=== PATIENT | male | born 1990 | race Caucasian/White ===

== ENCOUNTER 2023-06-26 13:42 | Emergency (ER) | payer OTHER ==
[2023-06-26 14:11] VITALS: BP 123/82; TEMP 98.2
--- NOTE | 2023-06-26 14:40 | ED ---
Alcohol HPI - General Chief Complaint: Alcohol Stated Complaint: ETOH Time Seen by Provider: 06/26/23 13:55 Source: EMS Mode of arrival: EMS Limitations: no limitations - History of Present Illness Initial Comments: 32-year-old male with past medical history of daily alcohol abuse, heroin abuse on methadone emergency department from [place]. Patient reported to [place] today for rehab. States that he drank more than his usual amounts and an attempt to get drunk as he knew that he was not going to be drinking. States he usually drinks a fifth of vodka per day. Cannot tell me how much he drank today but states he was more than is normal. At [facility] the patient was unable to stand up straight. Because of this they transferred him over to the emergency department for sobriety - Related Data Home Medications Medication Instructions Recorded Confirmed Acetaminophen [Tylenol] 650 mg PO Q4H PRN MDD 4 doses 06/27/23 06/27/23 Calcium/Mag/Zinc/D3 1 tab PO TID PRN 06/27/23 06/27/23 Chlorpheniramine Maleate 4 mg PO Q4H PRN 06/27/23 06/27/23 [Chlor-Trimeton] Hyoscyamine Sulfate [Levsin-Sl] 0.125 mg PO QID PRN 06/27/23 06/27/23 Ibuprofen [Motrin] 600 mg PO Q6H PRN 06/27/23 06/27/23 LORazepam [Ativan] 1 - 2 mg PO Q4H PRN 06/27/23 06/27/23 Loperamide HCl [Imodium A-D] 4 mg PO QID PRN 06/27/23 06/27/23 Methadone HCl [Methadone Intensol] 175 mg PO DAILY 06/27/23 06/27/23 Multivitamins, Thera [Multivitamin 1 tab PO DAILY 06/27/23 06/27/23 (formulary)] Mylanta 30 ml PO Q4H PRN 06/27/23 06/27/23 Zofran Injection 4 mg IM Q6HR PRN 06/27/23 06/27/23 ondansetron HCL [Zofran] 8 mg PO Q6H PRN 06/27/23 06/27/23 Allergies Allergy/AdvReac Type Severity Reaction Status Date / Time Sulfa (Sulfonamide Allergy Unknown Verified 06/27/23 10:29 Antibiotics) Childhood Review of Systems ROS Statement: Those systems with pertinent positive or pertinent negative responses have been documented in the HPI. ROS Other: All systems not noted in ROS Statement are negative. Past Medical History Past Medical History: No Reported History History of Any Multi-Drug Resistant Organisms: None Reported Past Surgical History: Orthopedic Surgery Past Psychological History: Anxiety Smoking Status: Current every day smoker Past Alcohol Use History: Abuse Past Drug Use History: Heroin, Marijuana General Exam Limitations: altered mental status General appearance: alert, in no apparent distress, appears intoxicated Head exam: Present: atraumatic, normocephalic, normal inspection Eye exam: Present: normal appearance, PERRL, EOMI. Absent: scleral icterus, conjunctival injection, periorbital swelling ENT exam: Present: normal exam, mucous membranes moist Neck exam: Present: normal inspection. Absent: tenderness, meningismus, lymphadenopathy Respiratory exam: Present: normal lung sounds bilaterally. Absent: respiratory distress, wheezes, rales, rhonchi, stridor Cardiovascular Exam: Present: regular rate, normal rhythm, normal heart sounds. Absent: systolic murmur, diastolic murmur, rubs, gallop, clicks GI/Abdominal exam: Present: soft, normal bowel sounds. Absent: distended, tenderness, guarding, rebound, rigid Extremities exam: Present: normal inspection, full ROM, normal capillary refill. Absent: tenderness, pedal edema, joint swelling, calf tenderness Back exam: Present: normal inspection Neurological exam: Present: alert, oriented X3, CN II-XII intact, normal gait, other (intoxicated. slurred speech) Psychiatric exam: Present: normal affect, normal mood Skin exam: Present: warm, dry, intact, normal color. Absent: rash Course Vital Signs 06/26/23 06/26/23 06/26/23 13:52 13:58 15:31 Temperature 98.2 F Pulse Rate 98 92 77 Respiratory 16 17 20 Rate Blood Pressure 123/82 123/82 123/82 O2 Sat by Pulse 100 98 99 Oximetry Medical Decision Making - Medical Decision Making Was pt. sent in by a medical professional or institution (, PA, ROD GREASER, urgent c are, hospital, or fdc...) When possible be specific @ -[facility] Did you speak to anyone other than the patient for history (EMS, parent, family, police, friend...)? What history was obtained from this source @ -EMS, [facility] Did you review nursing and triage notes (agree or disagree)? Why? @ -I reviewed and agree with nursing and triage notes Were old charts reviewed (outside hosp., previous admission, EMS record, old EKG, old radiological studies, urgent care reports/EKG's, fdc records)? Report findings @ -No old charts were reviewed Differential Diagnosis (chest pain, altered mental status, abdominal pain women, abdominal pain men, vaginal bleeding, weakness, fever, dyspnea, syncope, headache, dizziness, GI bleed, back pain, seizure, CVA, palpatations, mental health, musculoskeletal)? @ -alcohol intoxication, alcohol withdrawal, idva, head injury EKG interpreted by me (3pts min.). @ -not done X-rays interpreted by me (1pt min.). @ -None done CT interpreted by me (1pt min.). @ -None done U/S interpreted by me (1pt. min.). @ -None done What testing was considered but not performed or refused? (CT, X-rays, U/S, labs)? Why? @ -None What meds were considered but not given or refused? Why? @ -None Did you discuss the management of the patient with other professionals (professionals i.e. , PA, ROD GREASER, lab, RT, psych nurse, social science professor, rivet spinner, teacher, retail loan officer, case technician)? Give summary @ -No Was smoking cessation discussed for >3mins.? @ -No Was critical care preformed (if so, how long)? @ -No Were there social determinants of health that impacted care today? How? (Homelessness, low income, unemployed, alcoholism, drug addiction, transportation, low edu. Level, literacy, decrease access to med. care, [facility], rehab)? @ -No Was there de-escalation of care discussed even if they declined (Discuss DNR or withdrawal of care, Hospice)? DNR status @ -No What co-morbidities impacted this encounter? (DM, HTN, Smoking, COPD, CAD, Can cer, CVA, ARF, Chemo, Hep., AIDS, mental health diagnosis, sleep apnea, morbid obesity)? @ -alcohol intoxication Was patient admitted / discharged? Hospital course, mention meds given and route, prescriptions, significant lab abnormalities, going to OR and other pertinent info. @Upon arrival patient was placed in room 2. Thorough history and physical exam was performed. Patient does have a breathalyzer alcohol level of 0.197. He is observed in the emergency department for an hour and a half. He is able to answer all questions appropriately. He is able to get up and ambulate without issue. At this time the patient will be discharged to [facility] for continued sobriety Undiagnosed new problem with uncertain prognosis? @ -No Drug Therapy requiring intensive monitoring for toxicity (Heparin, Nitro, Insulin, Cardizem)? @ -No Were any procedures done? @ -No Diagnosis/symptom? @ -acute alcohol intoxication, hx etoh abuse Acute, or Chronic, or Acute on Chronic? @ -Acute Uncomplicated (without systemic symptoms) or Complicated (systemic symptoms)? @ -complicated Side effects of treatment? @ -No Exacerbation, Progression, or Severe Exacerbation? @ -No Poses a threat to life or bodily function? How? (Chest pain, [place], [place], pneumonia, PE, COPD, DKA, ARF, appy, cholecystitis, CVA, Diverticulitis, Homicidal, Suicidal, threat to staff... and all critical care pts) @ -No Disposition Clinical Impression: Alcoholic intoxication Disposition: HOME SELF-CARE Condition: Stable Instructions (If sedation given, give patient instructions): Alcohol Intoxication (ED) Additional Instructions: Your alcohol level was 0.197 when you came in. You were able to ambulate without difficulty. You will be transferred back to [facility] at this time Is patient prescribed a controlled substance at d/c from ED?: No Referrals: Mir Brantley MD [Primary Care Provider] - 1-2 days Time of Disposition: 14:39
[2023-06-26 15:43] VITALS: PULSE 77; RESP 20
== END 2023-06-26 15:32 | disposition home or self-care (01) ==
LOC: EC 13:42
DX: F10.129 Alcohol abuse with intoxication, unspecified (principal); F41.9 Anxiety disorder, unspecified; F17.200 Nicotine dependence, unspecified, uncomplicated; F12.90 Cannabis use, unspecified, uncomplicated; Z88.2 Allergy status to sulfonamides; Z79.899 Other long term (current) drug therapy
CPT/HCPCS: 82075; 99284

== ENCOUNTER 2023-06-27 10:16 | Inpatient (IN) | payer OTHER ==
[2023-06-27] MEDS ORDERED: METOCLOPRAMIDE 5 MG/ML 2 ML VIAL IVP STA ×2 (10:48→11:17)
--- NOTE | 2023-06-27 10:49 | ED ---
Nausea/Vomiting/Diarrhea HPI - General Source: patient, RN notes reviewed Mode of arrival: ambulatory Limitations: no limitations <Joycelyn Bowen - Last Filed: 06/27/23 10:48> <Zan Rutherford - Last Filed: 06/27/23 13:56> - General Chief complaint: Nausea/Vomiting/Diarrhea Stated complaint: abd pain/vomiting Time Seen by Provider: 06/27/23 10:48 - History of Present Illness Initial comments: Patient is a 32-year-old male presented ER with chief complaint of nausea vomiting. Patient states he fell against the past day. Patient endorses associated chills. (Joycelyn Bowen) Patient is a 32-year-old male presenting from [place] for rehab for alcohol abuse, presenting with nausea vomiting. She states last drink was 2 days ago. He states he's had increased nausea vomiting. No signs of blood in the emesis. Patient does admit to abdominal discomfort. He states that he feels that is radiating up. The patient does admit that he's had mild cough but states this is not unusual for him. He denies any other complaints or any other symptoms at this time. Patient denies any recent fever, chills, shortness of breath, chest pain, back pain, numbness or tingling, headaches or visual changes, or any other complaints. (Zan Rutherford) - Related Data Allergies Allergy/AdvReac Type Severity Reaction Status Date / Time Sulfa (Sulfonamide Allergy Unknown Verified 06/27/23 10:29 Antibiotics) Childhood Review of Systems ROS Other: All systems not noted in ROS Statement are negative. <Joycelyn Bowen - Last Filed: 06/27/23 10:48> ROS Other: All systems not noted in ROS Statement are negative. <Zan Rutherford - Last Filed: 06/27/23 13:56> ROS Statement: Those systems with pertinent positive or pertinent negative responses have been documented in the HPI. Past Medical History Past Medical History: No Reported History History of Any Multi-Drug Resistant Organisms: None Reported Past Surgical History: Orthopedic Surgery Past Psychological History: Anxiety Smoking Status: Current every day smoker Past Alcohol Use History: Abuse Past Drug Use History: Heroin, Marijuana <Joycelyn Bowen - Last Filed: 06/27/23 10:48> General Exam Limitations: no limitations <Joycelyn Bowen - Last Filed: 06/27/23 10:48> <Zan Rutherford - Last Filed: 06/27/23 13:56> - General Exam Comments Initial Comments: Visual Physical Exam Vital signs reviewed General: Well-appearing, nontoxic, no acute distress. Head: Normocephalic, atraumatic Eyes: PERRLA, EOMI ENT: Airway patent Chest: Nonlabored breathing Skin: No visual rash, normal skin tone Neuro: Alert and oriented 3 Musculoskeletal: No gross abnormalities (Joycelyn Bowen) General: The patient is awake and alert, in no distress, and does not appear acutely ill. Eye: extra-ocular movements are intact. There is normal conjunctiva bilaterally. No signs of icterus. Ears, nose, mouth and throat: There are moist mucous membranes and no oral lesions. Neck: The neck is supple Cardiovascular: There is a regular rate and rhythm. No murmur, rub or gallop is appreciated. Respiratory: Lungs are clear to auscultation, respirations are non-labored, breath sounds are equal. Gastrointestinal: Abdomen is soft on palpation. Mild tenderness epigastric. No rebound, guarding. Musculoskeletal: Normal ROM, no tenderness. Neurological: A&O x 3. CN II-XII intact, There are no obvious motor or sensory deficits. Coordination appears grossly intact. Speech is normal. Skin: Skin is warm and dry and no rashes or lesions are noted. Psychiatric: Cooperative, appropriate mood & affect, normal judgment. (Zan Patrick) Course Vital Signs 06/27/23 10:27 Temperature 98.2 F Pulse Rate 86 Respiratory 20 Rate Blood Pressure 121/76 O2 Sat by Pulse 99 Oximetry Medical Decision Making <Joycelyn Bowen - Last Filed: 06/27/23 10:48> - Lab Data Result diagrams: 06/27/23 12:11 06/27/23 12:11 <Zan Rutherford - Last Filed: 06/27/23 13:56> - Medical Decision Making I performed the quick note portion of the exam. Electronically signed by Joycelyn Bowen PA-C (Joycelyn Bowen) History was obtained from patient/Nurse/ Initial assessment and chief complaint: Nausea, vomiting Chronic conditions affecting care: Heroin abuse, alcohol abuse Social determinants affecting care: None Differential diagnosis included, but not limited to: Alcohol withdrawal, gastritis, colitis, gastroenteritis, pancreatitis Patient 32-year-old male significant past medical history for heroin abuse, alcohol abuse, presenting to the emergency room today with a chief complaint of abdominal discomfort, nausea vomiting. Patient does admit last drink was 2 days ago. Currently at [place] for rehab for alcohol. Patient vitals been stable here in emergency room. He was given liter bolus and Ativan, Zofran, Toradol, Pepcid here in the emergency room states he is feeling better. Patient does take methadone. He did receive his dose at 175 mg earlier this morning had [place]. Patient blood work is been reviewed. No elevated white count 10.9. Patient's amylase lipase are elevated. Lipase was 6500. Minimal elevation of AST ALT of 116, 120. Total bilirubin 2.8. Case was discussed with Dr. May who will admit the patient. Does request a CT of the abdomen pelvis which has been placed on his behalf and is currently pending. Patient will be admitted. He is with plan states understanding and is agreement. (Zan Rutherford) - Lab Data Lab Results 06/27/23 06/27/23 06/27/23 Range/Units 10:38 12:11 12:11 WBC 10.9 H (3.8-10.6) k/uL RBC 4.61 (4.30-5.90) m/uL Hgb 15.8 (13.0-17.5) gm/dL Hct 46.4 (39.0-53.0) % MCV 100.5 H (80.0-100.0) fL MCH 34.3 (25.0-35.0) pg MCHC 34.2 (31.0-37.0) g/dL RDW 11.9 (11.5-15.5) % Plt Count 185 (150-450) k/uL MPV 8.2 Neutrophils % 85 % Lymphocytes % 4 % Monocytes % 10 % Eosinophils % 0 % Basophils % 0 % Neutrophils # 9.3 H (1.3-7.7) k/uL Lymphocytes # 0.5 L (1.0-4.8) k/uL Monocytes # 1.1 H (0-1.0) k/uL Eosinophils # 0.0 (0-0.7) k/uL Basophils # 0.0 (0-0.2) k/uL Sodium 135 L (137-145) mmol/L Potassium 3.8 (3.5-5.1) mmol/L Chloride 94 L (98-107) mmol/L Carbon Dioxide 26 (22-30) mmol/L Anion Gap 15 mmol/L BUN 18 (9-20) mg/dL Creatinine 0.62 L (0.66-1.25) mg/dL Est GFR (CKD-EPI)AfAm >90 (>60 ml/min/1.73 sqM) Est GFR (CKD-EPI)NonAf >90 (>60 ml/min/1.73 sqM) Glucose 120 H (74-99) mg/dL Calcium 9.5 (8.4-10.2) mg/dL Total Bilirubin 2.8 H (0.2-1.3) mg/dL AST 116 H (17-59) U/L ALT 120 H (4-49) U/L Alkaline Phosphatase 80 (38-126) U/L Total Protein 7.9 (6.3-8.2) g/dL Albumin 4.9 (3.5-5.0) g/dL Amylase 511 H* (30-110) U/L Lipase 6512 H (23-300) U/L Influenza Type A (PCR) Not Detected (Not Detectd) Influenza Type B (PCR) Not Detected (Not Detectd) RSV (PCR) Not Detected (Not Detectd) SARS-CoV-2 (PCR) Not Detected (Not Detectd) Disposition <Joycelyn Bowen - Last Filed: 06/27/23 10:48> Time of Disposition: 13:55 <Zan Rutherford - Last Filed: 06/27/23 13:56> Clinical Impression: Acute pancreatitis Disposition: ADMITTED IP TO THIS HOSP Condition: Stable Referrals: None,Stated [REFERRING] - 1-2 days
[2023-06-27] MEDS ORDERED: diphenhydrAMINE 50 MG/ML 1 ML VIAL IVP STA (11:18)
[2023-06-27] MEDS ORDERED: LORazepam 2 MG/ML INJ IV STA (11:29)
[2023-06-27] MEDS ORDERED: ONDANSETRON 4 MG/2 ML VIAL IVP STA (11:29)
[2023-06-27 12:33] LABS: Basophils % (A) 0 %; Eosinophils % (A) 0 %; HCT 46.4 % (39.0-53.0); HGB 15.8 gm/dL (13.0-17.5); Lymphocytes # (A) 0.5 k/uL (1.0-4.8); Lymphocytes % (A) 4 %; MCH 34.3 pg (25.0-35.0); MCHC 34.2 g/dL (31.0-37.0); MCV 100.5 fL (80.0-100.0); Mean Platelet Volume 8.2; Monocytes # (A) 1.1 k/uL (0-1.0); Monocytes % (A) 10 %; Neutrophils # (A) 9.3 k/uL (1.3-7.7); Neutrophils % (A) 85 %; Platelet Count 185 k/uL (150-450); RBC 4.61 m/uL (4.30-5.90); RDW 11.9 % (11.5-15.5); WBC 10.9 k/uL (3.8-10.6)
[2023-06-27 12:47] LABS: ALT 120 U/L (4-49); AST 116 U/L (17-59); African American GFR (CKD) >90 (>60 ml/min/1.73 sqM); Albumin 4.9 g/dL (3.5-5.0); Alkaline Phosphatase 80 U/L (38-126); Anion Gap 15 mmol/L; Blood Urea Nitrogen 18 mg/dL (9-20); Calcium 9.5 mg/dL (8.4-10.2); Carbon Dioxide 26 mmol/L (22-30); Chloride 94 mmol/L (98-107); Glucose 120 mg/dL (74-99); Non-African American GFR(CKD) >90 (>60 ml/min/1.73 sqM); Potassium 3.8 mmol/L (3.5-5.1); Sodium 135 mmol/L (137-145); Total Bilirubin 2.8 mg/dL (0.2-1.3); Total Protein 7.9 g/dL (6.3-8.2)
[2023-06-27] MEDS ORDERED: KETOROLAC 15 MG/ML 1 ML VIAL IVP STA (12:58)
[2023-06-27] MEDS ORDERED: FAMOTIDINE 20 MG/2 ML VIAL IV STA (12:59)
[2023-06-27 13:27] LABS: Amylase 511 U/L (30-110)
[2023-06-27 13:28] LABS: Lipase 6512 U/L (23-300)
[2023-06-27] MEDS ORDERED: NALOXONE 0.4 MG/ML 1 ML VIAL IV PRN (13:50)
[2023-06-27] MEDS ORDERED: ONDANSETRON 4 MG/2 ML VIAL IVP PRN (13:52)
[2023-06-27] MEDS ORDERED: ACETAMINOPHEN TAB 325 MG TAB PO PRN ×2 (14:25→15:03)
[2023-06-27] MEDS ORDERED: traMADol 50 MG TAB PO PRN (14:25)
[2023-06-27] MEDS ORDERED: LORazepam 1 MG TAB PO PRN (14:27)
--- NOTE | 2023-06-27 15:06 | P.HPIM ---
History of Present Illness H&P Date: 06/27/23 Chief Complaint: Nausea vomiting abdominal pain * 32-year-old gentleman with past medical history significant for anxiety, polysubstance use, previous history of marijuana use, heroin use presents to the emergency department with complains of nausea, vomiting. Patient was at [facility] admitted for alcohol detox/rehab. Patient states his last drink was 2 days prior to admission. Patient has been complaining of increased nausea and vomiting. Patient denies blood in his vomit. Patient did complain of abdominal discomfort at the time of admission as well. Patient says abdominal pain seems to be radiating up the throat. Patient had cough however he denied fever, chills, chest pain, shortness of breath, back pain and paresthesia or headache * Workup in ER include CBC which showed hemoglobin of 15.8 WBC of 10.9 and hematocrit of 46 MCV 100 platelet count of 185 * Serum chemistry shows sodium 135 potassium 3.8 chloride 94 BU and 18 creatinine 0.62 glucose 120 total bilirubin 2.8, AST 116 LT 120 a mile's of 511 lipase of 6512 * Patient was tested negative for RSV influenza and Covid * In to be admitted to medical for however CT abdomen and pelvis ordered which is pending at this time started on IV fluids in ED REVIEW OF SYSTEMS: Nausea, vomiting, abdominal pain CONSTITUTIONAL: No fever, no malaise, no fatigue. HEENT: No recent visual problems or hearing problems. Denied any sore throat. CARDIOVASCULAR: No chest pain, orthopnea, PND, no palpitations, no syncope. PULMONARY: No shortness of breath, no cough, no hemoptysis. GASTROINTESTINAL: Nausea, vomiting, abdominal pain NEUROLOGICAL: No headaches, no weakness, no numbness. HEMATOLOGICAL: Denies any bleeding or petechiae. GENITOURINARY: Denies any burning micturition, frequency, or urgency. MUSCULOSKELETAL/RHEUMATOLOGICAL: Denies any joint pain, swelling, or any muscle pain. ENDOCRINE: Denies any polyuria or polydipsia. The rest of the 14-point review of systems is negative. PHYSICAL EXAMINATION: GENERAL: The patient is alert and oriented x3, dry mucous membrane HEENT: Pupils are round and equally reacting to light. EOMI. CARDIOVASCULAR: S1 and S2 present. No murmurs, rubs, or gallops. PULMONARY: Chest is clear to auscultation, no wheezing or crackles. ABDOMEN: Soft, epigastric tenderness, nondistended, normoactive bowel sounds. MUSCULOSKELETAL: No joint swelling or deformity. EXTREMITIES: No cyanosis, clubbing, or pedal edema. NEUROLOGICAL: Gross neurological examination did not reveal any focal deficits. SKIN: No rashes. Past Medical History Past Medical History: No Reported History History of Any Multi-Drug Resistant Organisms: None Reported Past Surgical History: Orthopedic Surgery Past Psychological History: Anxiety Smoking Status: Current every day smoker Past Alcohol Use History: Abuse Past Drug Use History: Heroin, Marijuana Medications and Allergies Home Medications Medication Instructions Recorded Confirmed Type Acetaminophen [Tylenol] 650 mg PO Q4H PRN MDD 4 doses 06/27/23 06/27/23 History Calcium/Mag/Zinc/D3 1 tab PO TID PRN 06/27/23 06/27/23 History Chlorpheniramine Maleate 4 mg PO Q4H PRN 06/27/23 06/27/23 History [Chlor-Trimeton] Hyoscyamine Sulfate [Levsin-Sl] 0.125 mg PO QID PRN 06/27/23 06/27/23 History Ibuprofen [Motrin] 600 mg PO Q6H PRN 06/27/23 06/27/23 History LORazepam [Ativan] 1 - 2 mg PO Q4H PRN 06/27/23 06/27/23 History Loperamide HCl [Imodium A-D] 4 mg PO QID PRN 06/27/23 06/27/23 History Methadone HCl [Methadone Intensol] 175 mg PO DAILY 06/27/23 06/27/23 History Multivitamins, Thera [Multivitamin 1 tab PO DAILY 06/27/23 06/27/23 History (formulary)] Mylanta 30 ml PO Q4H PRN 06/27/23 06/27/23 History Zofran Injection 4 mg IM Q6HR PRN 06/27/23 06/27/23 History ondansetron HCL [Zofran] 8 mg PO Q6H PRN 06/27/23 06/27/23 History Allergies Allergy/AdvReac Type Severity Reaction Status Date / Time Sulfa (Sulfonamide Allergy Unknown Verified 06/27/23 10:29 Antibiotics) Childhood Physical Exam Vitals: Vital Signs Temp Pulse Resp BP Pulse Ox 06/27/23 10:27 98.2 F 86 20 121/76 99 Intake and Output 06/26/23 06/27/23 06/27/23 22:59 06:59 14:59 Other: Weight 72.575 kg Results CBC & Chem 7: 06/27/23 12:11 06/27/23 12:11 Labs: Abnormal Lab Results - Last 24 Hours (Table) 06/27/23 06/27/23 Range/Units 12:11 12:11 WBC 10.9 H (3.8-10.6) k/uL MCV 100.5 H (80.0-100.0) fL Neutrophils # 9.3 H (1.3-7.7) k/uL Lymphocytes # 0.5 L (1.0-4.8) k/uL Monocytes # 1.1 H (0-1.0) k/uL Sodium 135 L (137-145) mmol/L Chloride 94 L (98-107) mmol/L Creatinine 0.62 L (0.66-1.25) mg/dL Glucose 120 H (74-99) mg/dL Total Bilirubin 2.8 H (0.2-1.3) mg/dL AST 116 H (17-59) U/L ALT 120 H (4-49) U/L Amylase 511 H* (30-110) U/L Lipase 6512 H (23-300) U/L Assessment and Plan Assessment: Assessment and plan * Acute alcohol-induced pancreatitis * Alcohol use disorder with impending withdrawal * On methadone as outpatient * Leukocytosis likely reactive * In regards to alcohol-induced pancreatitis, continue IV fluid, CT abdomen pelvis ordered, continue patient on clear liquid diet, Zofran as needed for nausea * In regards to alcohol use disorder continue on withdrawal protocol Ativan as needed Librium ordered as well * In regards to leukocytosis likely reactive, follow-up on CBC post hydration * Admission reconciliation reviewed, pharmacy confirmed methadone dosing, patient requesting his methadone for today/ordered,monitor for oversedation * CODE STATUS full code Time with Patient: Greater than 30
[2023-06-27] MEDS: SODIUM CHLORIDE 0.9% 1,000 ML IV SCH (16:38)
[2023-06-27] MEDS: FOLIC ACID 1 MG TAB PO SCH (16:39)
--- NOTE | 2023-06-27 17:40 | CT ---
EXAMINATION TYPE: CT abdomen pelvis w con DATE OF EXAM: 06/27/2023 COMPARISON: None INDICATION: nausea and vomiting DLP: 662.5 mGycm, Automated exposure control for dose reduction was used. CONTRAST: 100ml mL of Isovue 300. Study performed without Oral Contrast TECHNIQUE: Axial images were obtained from above the diaphragm to the pubic rami in the axial plane a t 5 mm thick sections. Reconstructed images are reviewed on the computer in the coronal plane. FINDINGS: Limited CT sections are obtained the lung bases. The lung bases are clear. CT ABDOMEN: Fluid is within the abdomen and pelvis. Retroperitoneal fluid may be present adjacent to the pancreas and left adrenal gland. Liver: There is diffuse diminished density to the liver compatible with moderate fatty infiltration o f liver. Spleen: Normal Pancreas: Pancreas density appears normal. There is fluid adjacent to the pancreas. Consider pancreat itis within the differential. Adrenal glands: The adrenal glands are normal. Gallbladder: Normal Kidneys: No masses are evident. No hydronephrosis is present. No cysts are present. No renal stone s are evident. Aorta: Normal Inferior vena cava: Normal. CT PELVIS: Loops of bowel within the abdomen and pelvis are normal. Study is without oral contrast limiting bowel evaluation. Appendix: Not identified. Correlate with patient's surgical history. Urinary bladder: Normal. Genitourinary structures: Prostate is normal Osseous structures: No suspicious lytic or sclerotic lesions. IMPRESSION: 1. Diffuse free fluid within the abdomen and pelvis and some retroperitoneal fluid. Correlate for ac matt pancreatitis among other etiologies. 2. Moderate fatty infiltration of the liver.
[2023-06-27] MEDS: HYDROmorphone 1 MG/ML 1 ML SYRINGE IVP PRN (18:08)
[2023-06-27] MEDS: chlordiazePOXIDE 25 MG CAP PO PRN (20:40)
[2023-06-27] MEDS ORDERED: TAMSULOSIN 0.4 MG CAP.ER.24H PO STA (22:19)
[2023-06-28] MEDS: HYDROmorphone 1 MG/ML 1 ML SYRINGE IVP PRN ×5 (00:11→21:44)
[2023-06-28] MEDS: chlordiazePOXIDE 25 MG CAP PO PRN ×5 (01:31→21:59)
[2023-06-28] MEDS: SODIUM CHLORIDE 0.9% 1,000 ML IV SCH ×5 (06:18→23:50)
[2023-06-28] MEDS ORDERED: TAMSULOSIN 0.4 MG CAP.ER.24H PO SCH (08:30)
[2023-06-28] MEDS: THIAMINE 100 MG TAB PO SCH (09:07)
[2023-06-28] MEDS: FOLIC ACID 1 MG TAB PO SCH (09:07)
[2023-06-28] MEDS: ENOXAPARIN 40 MG/0.4 ML SYRINGE SQ SCH (09:07)
[2023-06-28] MEDS: TAMSULOSIN 0.4 MG CAP.ER.24H PO SCH (09:07)
[2023-06-28] MEDS: METHADONE 10 MG TAB PO SCH (09:31)
[2023-06-28] MEDS: METHADONE 5 MG TAB PO SCH (09:32)
[2023-06-28 09:34] LABS: Basophils # (A) 0.03 X 10*3/uL (0.00-0.10); Basophils % (A) 0.3 %; Eosinophils # (A) 0 X 10*3/uL (0.04-0.35); Eosinophils % (A) 0 %; HCT 46.3 % (39.6-50.0); HGB 15.9 g/dL (13.0-17.0); Lymphocytes # (A) 0.46 X 10*3/uL (0.90-5.00); Lymphocytes % (A) 4.2 %; MCH 34.3 pg (27.0-32.0); MCHC 34.3 g/dL (32.0-37.0); MCV 99.8 FL (80.0-97.0); Mean Platelet Volume 10.7 FL (9.5-12.2); Monocytes # (A) 1.14 X 10*3/uL (0.20-1.00); Monocytes % (A) 10.4 %; NRBC Per 100 WBC 0 X 10*3/uL (0.00-0.01); Neutrophils # (A) 9.26 X 10*3/uL (1.80-7.70); Neutrophils % (A) 84.7 %; Platelet Count 144 X 10*3/uL (140-440); RBC 4.64 X 10*6/uL (4.40-5.60); RDW 12.1 % (11.5-14.5); WBC 10.93 X 10*3/uL (4.50-10.00)
[2023-06-28 09:52] LABS: ALT 79 U/L (10-49); AST 76 U/L (14-35); Alkaline Phosphatase 68 U/L (41-126); BUN/Creat Ratio 29.33 Ratio (12.00-20.00); Blood Urea Nitrogen 17.6 mg/dL (9.0-27.0); Calcium 8.8 mg/dL (8.7-10.3); Carbon Dioxide 23.6 mmol/L (21.6-31.8); Chloride 99 mmol/L (96-109); Glucose 73 mg/dL (70-110); Potassium 3.7 mmol/L (3.5-5.5); Sodium 135 mmol/L (135-145); Total Bilirubin 1.8 mg/dL (0.3-1.2)
[2023-06-28 10:06] LABS: Lipase 1049 U/L (14-60)
--- NOTE | 2023-06-28 11:44 | P.GSCN ---
History of Present Illness Consult date: 06/28/23 History of present illness: 32-year-old male admitted to the hospital with nausea and vomiting. The patient has a history of substance abuse. He has been in the [facility]. Apparently he was found to have an elevated lipase and amylase consistent with pancreatitis. He was admitted for treatment of that plus probable withdrawal from substance abuse. He was having difficulty urinating in the emergency room and attempted a Rob catheter failed. We are asked to see the patient. In the interim he has voided without problems. Historically he denies problems with urination. There is been no history of infections hematuria dysuria or incontinence. He has never had a catheter. His no other urologic history. Review of Systems All systems: negative - Constitutional Denies fever, Denies weight loss - EENT Eyes: denies blurred vision Ears, nose, mouth and throat: Denies dysphagia - Cardiovascular Denies chest pain, Denies shortness of breath - Respiratory Denies cough, Denies 7 - Gastrointestinal Reports as per HPI - Genitourinary Denies dysuria, Denies hematuria - Integumentary Denies rash, Denies unusual bruising - Neurological Denies headaches, Denies syncope - Hematologic/Lymphatic Denies easy bleeding, Denies easy bruising Past Medical History Past Medical History: No Reported History History of Any Multi-Drug Resistant Organisms: None Reported Past Surgical History: Orthopedic Surgery Past Psychological History: Anxiety Smoking Status: Current every day smoker Past Alcohol Use History: Abuse, Daily Past Drug Use History: Heroin, Marijuana Medications and Allergies Home Medications Medication Instructions Recorded Confirmed Type Acetaminophen [Tylenol] 650 mg PO Q4H PRN MDD 4 doses 06/27/23 06/27/23 History Calcium/Mag/Zinc/D3 1 tab PO TID PRN 06/27/23 06/27/23 History Chlorpheniramine Maleate 4 mg PO Q4H PRN 06/27/23 06/27/23 History [Chlor-Trimeton] Hyoscyamine Sulfate [Levsin-Sl] 0.125 mg PO QID PRN 06/27/23 06/27/23 History Ibuprofen [Motrin] 600 mg PO Q6H PRN 06/27/23 06/27/23 History LORazepam [Ativan] 1 - 2 mg PO Q4H PRN 06/27/23 06/27/23 History Loperamide HCl [Imodium A-D] 4 mg PO QID PRN 06/27/23 06/27/23 History Methadone HCl [Methadone Intensol] 175 mg PO DAILY 06/27/23 06/27/23 History Multivitamins, Thera [Multivitamin 1 tab PO DAILY 06/27/23 06/27/23 History (formulary)] Mylanta 30 ml PO Q4H PRN 06/27/23 06/27/23 History Zofran Injection 4 mg IM Q6HR PRN 06/27/23 06/27/23 History ondansetron HCL [Zofran] 8 mg PO Q6H PRN 06/27/23 06/27/23 History Allergies Allergy/AdvReac Type Severity Reaction Status Date / Time Sulfa (Sulfonamide Allergy Unknown Verified 06/27/23 10:29 Antibiotics) Childhood Surgical - Exam Vital Signs Temp Pulse Resp BP Pulse Ox 98.2 F 86 20 121/76 99 06/27/23 10:27 06/27/23 10:27 06/27/23 10:27 06/27/23 10:27 06/27/23 10:27 - General The patient is tremulous. well developed, well nourished, no distress - Eyes normal ocular movement, no icteric - ENT no hearing loss, no congestion - Neck no masses, trachea midline - Respiratory normal respiratory effort, clear to auscultation - Abdomen Abdomen: soft, non tender, no guarding, no rigid, no rebound - Genitourinary normal penis with no external lesions, testicles present, testicles non-tender, other - Integumentary no rash, no abnormal pigmentation - Neurologic no disoriented, no combative - Psychiatric oriented to time, oriented to person, oriented to place, speech is normal, memory intact Results - Labs 06/28/23 04:56 06/28/23 04:56 Abnormal Lab Results - Last 24 Hours (Table) 06/27/23 06/27/23 06/28/23 Range/Units 12:11 12:11 04:56 WBC 10.9 H 10.93 H (3.8-10.6) k/uL MCV 100.5 H 99.8 H (80.0-100.0) fL MCH 34.3 H (27.0-32.0) pg Neutrophils # 9.3 H 9.26 H (1.3-7.7) k/uL Lymphocytes # 0.5 L 0.46 L (1.0-4.8) k/uL Monocytes # 1.1 H 1.14 H (0-1.0) k/uL Eosinophils # 0 L (0.04-0.35) X 10*3/uL Sodium 135 L (137-145) mmol/L Chloride 94 L (98-107) mmol/L Anion Gap (4.00-12.00) mmol/L Creatinine 0.62 L (0.66-1.25) mg/dL BUN/Creatinine Ratio (12.00-20.00) Ratio Glucose 120 H (74-99) mg/dL Total Bilirubin 2.8 H (0.2-1.3) mg/dL AST 116 H (17-59) U/L ALT 120 H (4-49) U/L Total Protein (6.2-8.2) g/dL Amylase 511 H* (30-110) U/L Lipase 6512 H (23-300) U/L 06/28/23 Range/Units 04:56 WBC (3.8-10.6) k/uL MCV (80.0-100.0) fL MCH (27.0-32.0) pg Neutrophils # (1.3-7.7) k/uL Lymphocytes # (1.0-4.8) k/uL Monocytes # (0-1.0) k/uL Eosinophils # (0.04-0.35) X 10*3/uL Sodium (137-145) mmol/L Chloride (98-107) mmol/L Anion Gap 12.40 H (4.00-12.00) mmol/L Creatinine (0.66-1.25) mg/dL BUN/Creatinine Ratio 29.33 H (12.00-20.00) Ratio Glucose (74-99) mg/dL Total Bilirubin 1.8 H (0.2-1.3) mg/dL AST 76 H (17-59) U/L ALT 79 H (4-49) U/L Total Protein 6.0 L (6.2-8.2) g/dL Amylase (30-110) U/L Lipase 1049 H (23-300) U/L Diabetes panel 06/27/23 06/28/23 Range/Units 12:11 04:56 Sodium 135 L 135 (137-145) mmol/L Potassium 3.8 3.7 (3.5-5.1) mmol/L Chloride 94 L 99 (98-107) mmol/L Carbon Dioxide 26 23.6 (22-30) mmol/L BUN 18 17.6 (9-20) mg/dL Creatinine 0.62 L 0.6 (0.66-1.25) mg/dL Glucose 120 H 73 (74-99) mg/dL Calcium 9.5 8.8 (8.4-10.2) mg/dL AST 116 H 76 H (17-59) U/L ALT 120 H 79 H (4-49) U/L Alkaline Phosphatase 80 68 (38-126) U/L Total Protein 7.9 6.0 L (6.3-8.2) g/dL Albumin 4.9 4.0 (3.5-5.0) g/dL Calcium panel 06/27/23 06/28/23 Range/Units 12:11 04:56 Calcium 9.5 8.8 (8.4-10.2) mg/dL Albumin 4.9 4.0 (3.5-5.0) g/dL Pituitary panel 06/27/23 06/28/23 Range/Units 12:11 04:56 Sodium 135 L 135 (137-145) mmol/L Potassium 3.8 3.7 (3.5-5.1) mmol/L Chloride 94 L 99 (98-107) mmol/L Carbon Dioxide 26 23.6 (22-30) mmol/L BUN 18 17.6 (9-20) mg/dL Creatinine 0.62 L 0.6 (0.66-1.25) mg/dL Glucose 120 H 73 (74-99) mg/dL Calcium 9.5 8.8 (8.4-10.2) mg/dL Adrenal panel 06/27/23 06/28/23 Range/Units 12:11 04:56 Sodium 135 L 135 (137-145) mmol/L Potassium 3.8 3.7 (3.5-5.1) mmol/L Chloride 94 L 99 (98-107) mmol/L Carbon Dioxide 26 23.6 (22-30) mmol/L BUN 18 17.6 (9-20) mg/dL Creatinine 0.62 L 0.6 (0.66-1.25) mg/dL Glucose 120 H 73 (74-99) mg/dL Calcium 9.5 8.8 (8.4-10.2) mg/dL Total Bilirubin 2.8 H 1.8 H (0.2-1.3) mg/dL AST 116 H 76 H (17-59) U/L ALT 120 H 79 H (4-49) U/L Alkaline Phosphatase 80 68 (38-126) U/L Total Protein 7.9 6.0 L (6.3-8.2) g/dL Albumin 4.9 4.0 (3.5-5.0) g/dL - Imaging CT scan - abdomen: report reviewed, image reviewed CT scan - pelvis: report reviewed, image reviewed Assessment and Plan Assessment: Impression: Acute pancreatitis. Substance abuse withdrawal. Difficulty of catheterization probably secondary to discomfort Recommendations: Patient has urinated. My impression that reason the scene staff had difficulty with catheterization was due to patient discomfort. Status history examination no further urologic care is indicated. If Further urologic assistance is needed please feel free to contact us.
--- NOTE | 2023-06-28 13:11 | P.PN ---
Subjective Progress Note Date: 06/28/23 * 32-year-old gentleman with past medical history significant for anxiety, polysubstance use, previous history of marijuana use, heroin use presents to the emergency department with complains of nausea, vomiting. Patient was at [place] admitted for alcohol detox/rehab. Patient states his last drink was 2 days prior to admission. Patient has been complaining of increased nausea and vomiting. Patient denies blood in his vomit. Patient did complain of abdominal discomfort at the time of admission as well. Patient says abdominal pain seems to be radiating up the throat. Patient had cough however he denied fever, chills, chest pain, shortness of breath, back pain and paresthesia or headache * Workup in ER include CBC which showed hemoglobin of 15.8 WBC of 10.9 and hematocrit of 46 MCV 100 platelet count of 185 * Serum chemistry shows sodium 135 potassium 3.8 chloride 94 BU and 18 creatinin e 0.62 glucose 120 total bilirubin 2.8, AST 116 LT 120 a mile's of 511 lipase of 6512 * Patient was tested negative for RSV influenza and Covid * In to be admitted to medical for however CT abdomen and pelvis ordered which is pending at this time started on IV fluids in ED * 2022 : Patient seen and evaluated bedside, patient alert and oriented 3, CT abdomen pelvis reviewed. Diffuse free fluid within the abdomen pelvis some bilateral paratonia fluid, Ammon to the pancreas consistent with acute pancreatitis. Follow-up blood work shows total bilirubin improving 1.8 AST and ALT improving, lipase improving. Continue clear liquid diet REVIEW OF SYSTEMS: Nausea, vomiting, abdominal pain CONSTITUTIONAL: No fever, no malaise, no fatigue. HEENT: No recent visual problems or hearing problems. Denied any sore throat. CARDIOVASCULAR: No chest pain, orthopnea, PND, no palpitations, no syncope. PULMONARY: No shortness of breath, no cough, no hemoptysis. GASTROINTESTINAL: Nausea, vomiting, abdominal pain NEUROLOGICAL: No headaches, no weakness, no numbness. HEMATOLOGICAL: Denies any bleeding or petechiae. GENITOURINARY: Denies any burning micturition, frequency, or urgency. MUSCULOSKELETAL/RHEUMATOLOGICAL: Denies any joint pain, swelling, or any muscle pain. ENDOCRINE: Denies any polyuria or polydipsia. The rest of the 14-point review of systems is negative. PHYSICAL EXAMINATION: GENERAL: The patient is alert and oriented x3, appearing better HEENT: Pupils are round and equally reacting to light. EOMI. CARDIOVASCULAR: S1 and S2 present. No murmurs, rubs, or gallops. PULMONARY: Chest is clear to auscultation, no wheezing or crackles. ABDOMEN: Soft, epigastric tenderness, nondistended, normoactive bowel sounds. MUSCULOSKELETAL: No joint swelling or deformity. EXTREMITIES: No cyanosis, clubbing, or pedal edema. NEUROLOGICAL: Gross neurological examination did not reveal any focal deficits. SKIN: No rashes. Objective - Vital Signs Vital signs: Vital Signs Temp 98.5 F 06/28/23 07:30 Pulse 101 H 06/28/23 07:30 Resp 17 06/28/23 07:30 BP 112/65 06/28/23 07:30 Pulse Ox 100 06/28/23 07:30 FiO2 Intake & Output 06/27/23 06/28/23 06/28/23 18:59 06:59 18:59 Output Total 500 Balance -500 Weight 72.575 kg 72.575 kg Output: Urine 500 Other: Voiding Method Urinal - Labs CBC & Chem 7: 06/28/23 04:56 06/28/23 04:56 Labs: Abnormal Lab Results - Last 24 Hours (Table) 06/27/23 06/28/23 06/28/23 Range/Units 12:11 04:56 04:56 WBC 10.93 H (4.50-10.00) X 10*3/uL MCV 99.8 H (80.0-97.0) FL MCH 34.3 H (27.0-32.0) pg Neutrophils # 9.26 H (1.80-7.70) X 10*3/uL Lymphocytes # 0.46 L (0.90-5.00) X 10*3/uL Monocytes # 1.14 H (0.20-1.00) X 10*3/uL Eosinophils # 0 L (0.04-0.35) X 10*3/uL Sodium 135 L (137-145) mmol/L Chloride 94 L (98-107) mmol/L Anion Gap 12.40 H (4.00-12.00) mmol/L Creatinine 0.62 L (0.66-1.25) mg/dL BUN/Creatinine Ratio 29.33 H (12.00-20.00) Ratio Glucose 120 H (74-99) mg/dL Total Bilirubin 2.8 H 1.8 H (0.2-1.3) mg/dL AST 116 H 76 H (17-59) U/L ALT 120 H 79 H (4-49) U/L Total Protein 6.0 L (6.2-8.2) g/dL Amylase 511 H* (30-110) U/L Lipase 6512 H 1049 H (23-300) U/L Assessment and Plan Assessment: Assessment and plan * Acute alcohol-induced pancreatitis * Alcohol use disorder with impending withdrawal * Transaminitis secondary to alcohol use * On methadone as outpatient polysubstance use disorder * Leukocytosis likely reactive * In regards to alcohol-induced pancreatitis, continue IV fluid, CT abdomen pelvis completed, continue clear liquid diet, continue Zofran * In regards to alcohol use disorder continue on withdrawal protocol Ativan as needed Librium ordered as well * In regards to leukocytosis likely reactive, follow-up on CBC post hydration * Admission reconciliation reviewed, pharmacy confirmed methadone dosing, continue methadone while inpatient, monitor for oversedation * CODE STATUS full code
[2023-06-28 15:25] LABS: Bacteria,Urine Rare /hpf; Mucus,Urine Few /hpf; RBC,Urine 2 /hpf (0-5); Squamous Epithelial Cell,Urine <1 /hpf (0-4); WBC,Urine 17 /hpf (0-5)
[2023-06-28 15:26] LABS: Appearance,Urine Clear (Clear); Color,Urine Light Orange; PH, Urine 6.5 (5.0-8.0); Specific Gravity,Urine >1.030 (1.001-1.035)
[2023-06-28 15:27] LABS: Bilirubin,Urine 1+ (Negative); Blood,Urine Negative (Negative); Glucose,Urine (UA) Trace (Negative); Ketones,Urine 2+ (Negative); Leukocyte Esterase,Urine Moderate (Negative); Nitrite,Urine Negative (Negative); Protein,Urine 1+ (Negative)
--- NOTE | 2023-06-28 17:38 | XR ---
EXAMINATION TYPE: XR KUB portable DATE OF EXAM: 06/28/2023 COMPARISON: None INDICATION: Abdominal pain TECHNIQUE: Single view abdomen supine view FINDINGS: There is a normal bowel gas pattern. Psoas margins are normal. No organomegaly is present. IMPRESSION: 1. Unremarkable Abdomen
[2023-06-29] MEDS: HYDROmorphone 1 MG/ML 1 ML SYRINGE IVP PRN ×4 (01:44→18:28)
[2023-06-29] MEDS: chlordiazePOXIDE 25 MG CAP PO PRN ×2 (03:29→08:25)
[2023-06-29] MEDS: SODIUM CHLORIDE 0.9% 1,000 ML IV SCH ×4 (06:39→19:49)
[2023-06-29] MEDS: TAMSULOSIN 0.4 MG CAP.ER.24H PO SCH (08:25)
[2023-06-29] MEDS: THIAMINE 100 MG TAB PO SCH (08:25)
[2023-06-29] MEDS: FOLIC ACID 1 MG TAB PO SCH (08:26)
[2023-06-29 09:29] LABS: HCT 43.3 % (39.0-53.0); HGB 14.4 gm/dL (13.0-17.5); MCH 34.5 pg (25.0-35.0); MCHC 33.3 g/dL (31.0-37.0); MCV 103.7 fL (80.0-100.0); Macrocytosis Slight; Mean Platelet Volume 8.5; RBC 4.17 m/uL (4.30-5.90); RDW 11.9 % (11.5-15.5); WBC 10.1 k/uL (3.8-10.6)
[2023-06-29] MEDS: METHADONE 5 MG TAB PO SCH (10:26)
[2023-06-29] MEDS: METHADONE 10 MG TAB PO SCH (10:26)
[2023-06-29] MEDS: ENOXAPARIN 40 MG/0.4 ML SYRINGE SQ SCH (10:28)
[2023-06-29] MEDS ORDERED: PHENobarbital SODIUM 130 MG/ML 1 ML VIAL IV ONE (11:34)
--- NOTE | 2023-06-29 11:37 | P.PN ---
Subjective Progress Note Date: 06/29/23 * 32-year-old gentleman with past medical history significant for anxiety, polysubstance use, previous history of marijuana use, heroin use presents to the emergency department with complains of nausea, vomiting. Patient was at [place] admitted for alcohol detox/rehab. Patient states his last drink was 2 days prior to admission. Patient has been complaining of increased nausea and vomiting. Patient denies blood in his vomit. Patient did complain of abdominal discomfort at the time of admission as well. Patient says abdominal pain seems to be radiating up the throat. Patient had cough however he denied fever, chills, chest pain, shortness of breath, back pain and paresthesia or headache * Workup in ER include CBC which showed hemoglobin of 15.8 WBC of 10.9 and hematocrit of 46 MCV 100 platelet count of 185 * Serum chemistry shows sodium 135 potassium 3.8 chloride 94 BU and 18 creatinin e 0.62 glucose 120 total bilirubin 2.8, AST 116 LT 120 a mile's of 511 lipase of 6512 * Patient was tested negative for RSV influenza and Covid * In to be admitted to medical for however CT abdomen and pelvis ordered which is pending at this time started on IV fluids in ED * 2022 : Patient seen and evaluated bedside, patient alert and oriented 3, CT abdomen pelvis reviewed. Diffuse free fluid within the abdomen pelvis some bilateral paratonia fluid, Ammon to the pancreas consistent with acute pancreatitis. Follow-up blood work shows total bilirubin improving 1.8 AST and ALT improving, lipase improving. Continue clear liquid diet * 06/29/2023: Patient seen and evaluated bedside, patient does complain of anxiety, patient says he is withdrawing from alcohol, he will be given 1 dose of phenobarbital, we'll follow-up on liver profile REVIEW OF SYSTEMS: Nausea, vomiting, abdominal pain resolved, nervous and anxious CONSTITUTIONAL: No fever, no malaise, no fatigue. HEENT: No recent visual problems or hearing problems. Denied any sore throat. CARDIOVASCULAR: No chest pain, orthopnea, PND, no palpitations, no syncope. PULMONARY: No shortness of breath, no cough, no hemoptysis. GASTROINTESTINAL: Nausea, vomiting, abdominal pain NEUROLOGICAL: No headaches, no weakness, no numbness. HEMATOLOGICAL: Denies any bleeding or petechiae. GENITOURINARY: Denies any burning micturition, frequency, or urgency. MUSCULOSKELETAL/RHEUMATOLOGICAL: Denies any joint pain, swelling, or any muscle pain. ENDOCRINE: Denies any polyuria or polydipsia. The rest of the 14-point review of systems is negative. PHYSICAL EXAMINATION: GENERAL: The patient is alert and oriented x3, appearing better HEENT: Pupils are round and equally reacting to light. EOMI. CARDIOVASCULAR: S1 and S2 present. No murmurs, rubs, or gallops. PULMONARY: Chest is clear to auscultation, no wheezing or crackles. ABDOMEN: Soft, epigastric tenderness, nondistended, normoactive bowel sounds. MUSCULOSKELETAL: No joint swelling or deformity. EXTREMITIES: No cyanosis, clubbing, or pedal edema. NEUROLOGICAL: Gross neurological examination did not reveal any focal deficits. SKIN: No rashes. Objective - Vital Signs Vital signs: Vital Signs Temp 98.7 F 06/29/23 07:05 Pulse 110 H 06/29/23 07:05 Resp 16 06/29/23 07:05 BP 113/71 06/29/23 07:05 Pulse Ox 98 06/29/23 07:05 FiO2 Intake & Output 06/28/23 06/29/23 06/29/23 18:59 06:59 18:59 Other: Voiding Method Urinal Urinal # Voids 0 1 - Labs CBC & Chem 7: 06/29/23 08:30 06/28/23 04:56 Labs: Abnormal Lab Results - Last 24 Hours (Table) 06/28/23 06/29/23 Range/Units 12:59 08:30 RBC 4.17 L (4.30-5.90) m/uL MCV 103.7 H (80.0-100.0) fL Urine Protein 1+ H (Negative) Urine WBC 17 H (0-5) /hpf Urine Bacteria Rare H (None) /hpf Urine Mucus Few H (None) /hpf Assessment and Plan Assessment: Assessment and plan * Acute alcohol-induced pancreatitis * Alcohol use disorder with impending withdrawal * Transaminitis secondary to alcohol use * On methadone as outpatient polysubstance use disorder * Leukocytosis likely reactive * In regards to alcohol-induced pancreatitis, continue IV fluid, CT abdomen pelvis completed, diet advanced as tolerated to full liquid, continue Zofran * In regards to alcohol use disorder continue on withdrawal protocol Ativan as needed Librium ordered as well , 1 dose of phenobarbital ordered * In regards to leukocytosis likely reactive, follow-up on CBC post hydration * Admission reconciliation reviewed, pharmacy confirmed methadone dosing, continue methadone while inpatient, monitor for oversedation * CODE STATUS full code Time with Patient: Greater than 30
[2023-06-29] MEDS: DOCUSATE 100 MG CAP PO PRN (12:05)
[2023-06-29] MEDS ORDERED: PHENobarbital SODIUM 130 MG/ML 1 ML VIAL IM STA (12:11)
[2023-06-29] MEDS: CALCIUM CARBONATE 500 MG CHEWABLE PO PRN ×2 (12:18→19:52)
[2023-06-29 13:53] LABS: ALT 46 U/L (10-49); AST 42 U/L (14-35); Albumin 3.4 g/dL (3.8-4.9); Albumin/Globulin Ratio 1.79 Ratio (1.60-3.17); Alkaline Phosphatase 59 U/L (41-126); BUN/Creat Ratio 12.86 Ratio (12.00-20.00); Calcium 8.4 mg/dL (8.7-10.3); Carbon Dioxide 24.5 mmol/L (21.6-31.8); Chloride 98 mmol/L (96-109); Globulin 1.9 g/dL (1.6-3.3); Glucose 91 mg/dL (70-110); Lipase 344 U/L (14-60); Potassium 3.7 mmol/L (3.5-5.5); Sodium 133 mmol/L (135-145); Total Bilirubin 1.6 mg/dL (0.3-1.2); Total Protein 5.3 g/dL (6.2-8.2)
[2023-06-29 14:24] LABS: Platelet Count 95 k/uL (150-450)
[2023-06-29 19:44] VITALS: RESP 16
[2023-06-30] MEDS: HYDROmorphone 1 MG/ML 1 ML SYRINGE IVP PRN ×2 (01:09→08:54)
[2023-06-30] MEDS: CALCIUM CARBONATE 500 MG CHEWABLE PO PRN (01:10)
[2023-06-30] MEDS: DOCUSATE 100 MG CAP PO PRN (01:14)
[2023-06-30] MEDS: SODIUM CHLORIDE 0.9% 1,000 ML IV SCH (02:12)
[2023-06-30 08:53] VITALS: BP 108/69; PULSE 107; TEMP 98.2
[2023-06-30] MEDS: THIAMINE 100 MG TAB PO SCH (08:56)
[2023-06-30] MEDS: FOLIC ACID 1 MG TAB PO SCH (08:56)
[2023-06-30] MEDS: ENOXAPARIN 40 MG/0.4 ML SYRINGE SQ SCH (08:57)
[2023-06-30] MEDS: TAMSULOSIN 0.4 MG CAP.ER.24H PO SCH (08:57)
[2023-06-30] MEDS: METHADONE 10 MG TAB PO SCH (09:16)
[2023-06-30] MEDS: METHADONE 5 MG TAB PO SCH (09:17)
[2023-06-30 10:47] LABS: HCT 36.9 % (39.6-50.0); HGB 12.9 g/dL (13.0-17.0); MCH 34.8 pg (27.0-32.0); MCV 99.5 FL (80.0-97.0); Mean Platelet Volume 10.8 FL (9.5-12.2); NRBC Per 100 WBC 0 X 10*3/uL (0.00-0.01); Platelet Count 110 X 10*3/uL (140-440); RBC 3.71 X 10*6/uL (4.40-5.60); WBC 8.61 X 10*3/uL (4.50-10.00)
[2023-06-30 12:08] LABS: ALT 43 U/L (10-49); AST 43 U/L (14-35); Albumin 3.2 g/dL (3.8-4.9); Albumin/Globulin Ratio 1.68 Ratio (1.60-3.17); Alkaline Phosphatase 58 U/L (41-126); BUN/Creat Ratio 8.67 Ratio (12.00-20.00); Blood Urea Nitrogen 5.2 mg/dL (9.0-27.0); Calcium 8.4 mg/dL (8.7-10.3); Carbon Dioxide 23.2 mmol/L (21.6-31.8); Chloride 102 mmol/L (96-109); Globulin 1.9 g/dL (1.6-3.3); Glucose 88 mg/dL (70-110); Lipase 124 U/L (14-60); Potassium 3.4 mmol/L (3.5-5.5); Sodium 136 mmol/L (135-145); Total Bilirubin 1.4 mg/dL (0.3-1.2); Total Protein 5.1 g/dL (6.2-8.2)
--- NOTE | 2023-06-30 12:31 | P.DS ---
Providers Date of admission: 06/27/23 13:43 Expected date of discharge: 06/30/23 Attending physician: Zheng May MD Consults: 06/27/23 22:47 Consult Physician Stat Consulting Provider: Colt Ruiz Consult Reason/Comments: urinary retention, difficult phillips placement Do you want consulting provider notified?: Yes Primary care physician: [facility] Course: * 32-year-old gentleman with past medical history significant for anxiety, polysubstance use, previous history of marijuana use, heroin use presents to the emergency department with complains of nausea, vomiting. Patient was at [place] admitted for alcohol detox/rehab. Patient states his last drink was 2 days prior to admission. Patient has been complaining of increased nausea and vomiting. Patient denies blood in his vomit. Patient did complain of abdominal discomfort at the time of admission as well. Patient says abdominal pain seems to be radiating up the throat. Patient had cough however he denied fever, chills, chest pain, shortness of breath, back pain and paresthesia or headache * Workup in ER include CBC which showed hemoglobin of 15.8 WBC of 10.9 and hematocrit of 46 MCV 100 platelet count of 185 * Serum chemistry shows sodium 135 potassium 3.8 chloride 94 BU and 18 creatinine 0.62 glucose 120 total bilirubin 2.8, AST 116 LT 120 a mile's of 511 lipase of 6512 * Patient was tested negative for RSV influenza and Covid * In to be admitted to medical for however CT abdomen and pelvis ordered which is pending at this time started on IV fluids in ED * 2022 : Patient seen and evaluated bedside, patient alert and oriented 3, CT abdomen pelvis reviewed. Diffuse free fluid within the abdomen pelvis some bilateral paratonia fluid, Burnet to the pancreas consistent with acute pancreatitis. Follow-up blood work shows total bilirubin improving 1.8 AST and ALT improving, lipase improving. Continue clear liquid diet * 06/29/2023: Patient seen and evaluated bedside, patient does complain of anxiety, patient says he is withdrawing from alcohol, he will be given 1 dose of phenobarbital, we'll follow-up on liver profile * 06/30/23: Patient left AGAINST MEDICAL ADVICE before my evaluation Assessment: Assessment and plan * Acute alcohol-induced pancreatitis * Alcohol use disorder with impending withdrawal * Transaminitis secondary to alcohol use * On methadone as outpatient polysubstance use disorder * Leukocytosis likely reactive * In regards to alcohol-induced pancreatitis, patient was treated with IV fluid, IV antinausea medication CT abdomen and pelvis was completed patient left AGAINST MEDICAL ADVICE on 06/30/23 * In regards to alcohol use disorder left AGAINST MEDICAL ADVICE * In regards to leukocytosis after AGAINST MEDICAL ADVICE * F AGAINST MEDICAL ADVICE does have decision-making capacity Patient Condition at Discharge: Undetermined Plan - Discharge Summary Discharge Rx Participant: No New Discharge Prescriptions: No Action Zofran Injection 4 mg IM Q6HR PRN PRN Reason: Nausea And Vomiting Ibuprofen [Motrin] 600 mg PO Q6H PRN PRN Reason: Pain Or Fever > 100.5 Methadone HCl [Methadone Intensol] 175 mg PO DAILY Multivitamins, Thera [Multivitamin (formulary)] 1 tab PO DAILY ondansetron HCL [Zofran] 8 mg PO Q6H PRN PRN Reason: Nausea And Vomiting Calcium/Mag/Zinc/D3 1 tab PO TID PRN PRN Reason: cramps Mylanta 30 ml PO Q4H PRN PRN Reason: Gi Upset Acetaminophen [Tylenol] 650 mg PO Q4H PRN MDD 4 doses PRN Reason: Pain Or Fever > 100.5 Chlorpheniramine Maleate [Chlor-Trimeton] 4 mg PO Q4H PRN PRN Reason: Allergy Symptoms Hyoscyamine Sulfate [Levsin-Sl] 0.125 mg PO QID PRN PRN Reason: cramps Loperamide HCl [Imodium A-D] 4 mg PO QID PRN PRN Reason: Diarrhea LORazepam [Ativan] 1 - 2 mg PO Q4H PRN PRN Reason: anxiety/withdrawl Discharge Medication List Acetaminophen [Tylenol] 650 mg PO Q4H PRN MDD 4 doses 06/27/23 [History] Calcium/Mag/Zinc/D3 1 tab PO TID PRN 06/27/23 [History] Chlorpheniramine Maleate [Chlor-Trimeton] 4 mg PO Q4H PRN 06/27/23 [History] Hyoscyamine Sulfate [Levsin-Sl] 0.125 mg PO QID PRN 06/27/23 [History] Ibuprofen [Motrin] 600 mg PO Q6H PRN 06/27/23 [History] LORazepam [Ativan] 1 - 2 mg PO Q4H PRN 06/27/23 [History] Loperamide HCl [Imodium A-D] 4 mg PO QID PRN 06/27/23 [History] Methadone HCl [Methadone Intensol] 175 mg PO DAILY 06/27/23 [History] Multivitamins, Thera [Multivitamin (formulary)] 1 tab PO DAILY 06/27/23 [History] Mylanta 30 ml PO Q4H PRN 06/27/23 [History] Zofran Injection 4 mg IM Q6HR PRN 06/27/23 [History] ondansetron HCL [Zofran] 8 mg PO Q6H PRN 06/27/23 [History] Follow up Appointment(s)/Referral(s): None,Stated [REFERRING] - 1-2 days Patient Instructions/Handouts: Seizure/Epilepsy Discharge Instructions & Follow-Up Discharge Disposition: LEFT AGAINST MEDICAL ADVICE
== END 2023-06-30 11:17 | disposition left against medical advice (07) | DRG 282 ==
LOC: EC 10:16 → 5NMEDONC 13:43 → 6NMEDSUR 21:19
PROVIDERS: ADMIT Internal Medicine; ATTEND Internal Medicine
DX: K85.20 Alcohol induced acute pancreatitis without necrosis or infection (principal); F10.139 Alcohol abuse with withdrawal, unspecified; D72.829 Elevated white blood cell count, unspecified; F11.10 Opioid abuse, uncomplicated; F41.9 Anxiety disorder, unspecified; R74.01 Elevation of levels of liver transaminase levels; Z53.29 Procedure and treatment not carried out because of patient's decision for other reasons; Z11.52 Encounter for screening for COVID-19; Z28.311 Partially vaccinated for COVID-19; Z88.2 Allergy status to sulfonamides; Z79.899 Other long term (current) drug therapy
CPT/HCPCS: 36415; 74018; 74177; 80053; 81001; 82150; 83605; 83690; 85025; 85027; 87086; 87636; 96374; 96375; 99285

== ENCOUNTER 2023-10-31 11:24 | Emergency (ER) | payer OTHER ==
[2023-10-31] MEDS: SODIUM CHLORIDE 0.9% 1,000 ML IV ONE (11:54)
[2023-10-31] MEDS: LORazepam 2 MG/ML INJ IV STA (11:55)
[2023-10-31] MEDS: KETOROLAC 15 MG/ML 1 ML VIAL IVP STA (11:55)
[2023-10-31 12:12] VITALS: RESP 16; TEMP 98
[2023-10-31 12:16] LABS: Basophils % (A) 0 %; Eosinophils % (A) 0 %; HCT 48.2 % (39.0-53.0); Lymphocytes # (A) 0.7 k/uL (1.0-4.8); Lymphocytes % (A) 11 %; MCH 33.6 pg (25.0-35.0); MCHC 33.1 g/dL (31.0-37.0); MCV 101.4 fL (80.0-100.0); Mean Platelet Volume 9.3; Monocytes # (A) 0.5 k/uL (0-1.0); Monocytes % (A) 8 %; Neutrophils # (A) 5.4 k/uL (1.3-7.7); Neutrophils % (A) 80 %; Platelet Count 191 k/uL (150-450); RBC 4.76 m/uL (4.30-5.90); RDW 11.7 % (11.5-15.5); WBC 6.8 k/uL (3.8-10.6)
[2023-10-31 12:23] LABS: ALT 152 U/L (4-49); AST 121 U/L (17-59); African American GFR (CKD) >90 (>60 ml/min/1.73 sqM); Albumin 5.1 g/dL (3.5-5.0); Alkaline Phosphatase 94 U/L (38-126); Anion Gap 11 mmol/L; Blood Urea Nitrogen 22 mg/dL (9-20); Calcium 10.3 mg/dL (8.4-10.2); Carbon Dioxide 22 mmol/L (22-30); Chloride 106 mmol/L (98-107); Glucose 146 mg/dL (74-99); Magnesium 2.2 mg/dL (1.6-2.3); Non-African American GFR(CKD) >90 (>60 ml/min/1.73 sqM); Potassium 4.5 mmol/L (3.5-5.1); Sodium 139 mmol/L (137-145); Total Bilirubin 1.4 mg/dL (0.2-1.3); Total Protein 8.2 g/dL (6.3-8.2)
--- NOTE | 2023-10-31 13:20 | ED ---
General Adult HPI - General Chief complaint: Seizure Stated complaint: Seizure Time Seen by Provider: 10/31/23 11:40 Source: patient, RN notes reviewed, old records reviewed Mode of arrival: EMS Limitations: no limitations - History of Present Illness Initial comments: This is a 32-year-old male who presents to the emergency department stating that he has been end rehab for alcohol abuse and a couple of days ago they stopped giving him his Ativan he has been feeling fine but according to staff that he had a seizure last approximately 3 minutes. Patient was not incontinent. Patient states this has happened in the past. Patient denies any symptoms currently. Patient would like to be discharged to go back to rehab soon as possible patient denies any recent fever chills or cough or patient has any chest pain difficulty breathing shortness of breath. Patient has any headache. Patient denies any nausea vomit diarrhea - Related Data Home Medications Medication Instructions Recorded Confirmed Acetaminophen [Tylenol] 650 mg PO Q4H PRN MDD 4 doses 06/27/23 06/27/23 Calcium/Mag/Zinc/D3 1 tab PO TID PRN 06/27/23 06/27/23 Chlorpheniramine Maleate 4 mg PO Q4H PRN 06/27/23 06/27/23 [Chlor-Trimeton] Hyoscyamine Sulfate [Levsin-Sl] 0.125 mg PO QID PRN 06/27/23 06/27/23 Ibuprofen [Motrin] 600 mg PO Q6H PRN 06/27/23 06/27/23 LORazepam [Ativan] 1 - 2 mg PO Q4H PRN 06/27/23 06/27/23 Loperamide HCl [Imodium A-D] 4 mg PO QID PRN 06/27/23 06/27/23 Methadone HCl [Methadone Intensol] 175 mg PO DAILY 06/27/23 06/27/23 Multivitamins, Thera [Multivitamin 1 tab PO DAILY 06/27/23 06/27/23 (formulary)] Mylanta 30 ml PO Q4H PRN 06/27/23 06/27/23 Zofran Injection 4 mg IM Q6HR PRN 06/27/23 06/27/23 ondansetron HCL [Zofran] 8 mg PO Q6H PRN 06/27/23 06/27/23 Allergies Allergy/AdvReac Type Severity Reaction Status Date / Time Sulfa (Sulfonamide Allergy Unknown Verified 06/27/23 10:29 Antibiotics) Childhood Review of Systems ROS Statement: Those systems with pertinent positive or pertinent negative responses have been documented in the HPI. ROS Other: All systems not noted in ROS Statement are negative. Past Medical History Past Medical History: Seizure Disorder History of Any Multi-Drug Resistant Organisms: None Reported Past Surgical History: Orthopedic Surgery Past Psychological History: Anxiety Smoking Status: Current every day smoker Past Alcohol Use History: Abuse, Daily Past Drug Use History: Heroin, Marijuana General Exam - General Exam Comments Initial Comments: GENERAL: Patient is well-developed and well-nourished. Patient is nontoxic and well- hydrated and is in no acute distress. ENT: Neck is soft and supple. No significant lymphadenopathy is noted. Oropharynx is clear. Moist mucous membranes. Neck has full range of motion without eliciting any pain. EYES: The sclera were anicteric and conjunctiva were pink and moist. Extraocular movements were intact and pupils were equal round and reactive to light. Eyelids were unremarkable. PULMONARY: Unlabored respirations. Good breath sounds bilaterally. No audible rales rhonchi or wheezing was noted. CARDIOVASCULAR: There is a regular rate and rhythm without any murmurs gallops or rubs. ABDOMEN: Soft and nontender with normal bowel sounds. No palpable organomegaly was noted. There is no palpable pulsatile mass. SKIN: Skin is clear with no lesions or rashes and otherwise unremarkable. NEUROLOGIC: Patient is alert and oriented x3. Cranial nerves II through XII are grossly intact. Motor and sensory are also intact. Normal speech, volume and content. Symmetrical smile. MUSCULOSKELETAL: Normal extremities with adequate strength and full range of motion. No lower extremity swelling or edema. No calf tenderness. LYMPHATICS: No significant lymphadenopathy is noted PSYCHIATRIC: Normal psychiatric evaluation. Limitations: no limitations Course Vital Signs 10/31/23 10/31/23 10/31/23 11:33 11:51 13:38 Temperature 98 F Pulse Rate 98 88 86 Respiratory 20 16 16 Rate Blood Pressure 115/80 118/80 130/60 O2 Sat by Pulse 99 98 98 Oximetry Medical Decision Making - Medical Decision Making EKG is interpreted by myself. EKG shows a sinus rhythm at 95 bpm parables 128 QRS is 89 QT interval 342 QTc is 394. Patient's EKG shows no ST segment ovation or depression. Was pt. sent in by a medical professional or institution (, YONIS, MACHINE PACK [employer]SEMBLER, urgent care, hospital, or half-way...) When possible be specific @ -[facility] sent this patien Did you speak to anyone other than the patient for history (EMS, parent, family, police, friend...)? What history was obtained from this source @ -No Did you review nursing and triage notes (agree or disagree)? Why? @ -I reviewed and agree with nursing and triage notes Were old charts reviewed (outside hosp., previous admission, EMS record, old EKG, old radiological studies, urgent care reports/EKG's, half-way records)? Report findings @ -No old charts were reviewed Differential Diagnosis (chest pain, altered mental status, abdominal pain women, abdominal pain men, vaginal bleeding, weakness, fever, dyspnea, syncope, headache, dizziness, GI bleed, back pain, seizure, CVA, palpatations, mental health, musculoskeletal)? @ -Differential Seizure: Recurrent seizure disorder, febrile seizure, alcohol withdrawal, stimulants, meningitis, encephalitis, intercranial hemorrhage, intracranial tumor, stroke, eclampsia, thyrotoxicosis, hypocalcemia, hyponatremia, hypernatremia, hypomagnesemia, psychogenic, this is not meant to be an all-inclusive list. EKG interpreted by me (3pts min.). @ -As above X-rays interpreted by me (1pt min.). @ -None done CT interpreted by me (1pt min.). @ -None done U/S interpreted by me (1pt. min.). @ -None done What testing was considered but not performed or refused? (CT, X-rays, U/S, labs)? Why? @ -None What meds were considered but not given or refused? Why? @ -None Did you discuss the management of the patient with other professionals (professionals i.e. YONIS Sanchez, MACHINE PACK ASSEMBLER, lab, RT, psych nurse, hospital social worker, stone driller helper, teacher, staff antisubmarine officer, case management manager)? Give summary @ -No Was smoking cessation discussed for >3mins.? @ -No Was critical care preformed (if so, how long)? @ -No Were there social determinants of health that impacted care today? How? (Homelessness, low income, unemployed, alcoholism, drug addiction, transportation, low edu. Level, literacy, decrease access to med. care, group home, rehab)? @ -No Was there de-escalation of care discussed even if they declined (Discuss DNR or withdrawal of care, Hospice)? DNR status @ -No What co-morbidities impacted this encounter? (DM, HTN, Smoking, COPD, CAD, Cancer, CVA, ARF, Chemo, Hep., AIDS, mental health diagnosis, sleep apnea, morbid obesity)? @ -None Was patient admitted / discharged? Hospital course, mention meds given and route, prescriptions, significant lab abnormalities, going to OR and other pertinent info. @ -Patient was asymptomatic throughout his ED course patient did not have any seizures. Patient was given Toradol for some back discomfort. Undiagnosed new problem with uncertain prognosis? @ -No Drug Therapy requiring intensive monitoring for toxicity (Heparin, Nitro, I nsulin, Cardizem)? @ -No Were any procedures done? @ -No Diagnosis/symptom? @ -Seizure Acute, or Chronic, or Acute on Chronic? @ -Acute Uncomplicated (without systemic symptoms) or Complicated (systemic symptoms)? @ -Uncomplicated Side effects of treatment? @ -No Exacerbation, Progression, or Severe Exacerbation? @ -No Poses a threat to life or bodily function? How? (Chest pain, [place], DE, pneumonia, PE, COPD, DKA, ARF, appy, cholecystitis, CVA, Diverticulitis, Homicidal, Suicidal, threat to staff... and all critical care pts) @ -No - Lab Data Result diagrams: 10/31/23 11:42 10/31/23 11:42 Lab Results 10/31/23 10/31/23 Range/Units 11:42 11:42 WBC 6.8 (3.8-10.6) k/uL RBC 4.76 (4.30-5.90) m/uL Hgb 16.0 (13.0-17.5) gm/dL Hct 48.2 (39.0-53.0) % MCV 101.4 H (80.0-100.0) fL MCH 33.6 (25.0-35.0) pg MCHC 33.1 (31.0-37.0) g/dL RDW 11.7 (11.5-15.5) % Plt Count 191 (150-450) k/uL MPV 9.3 Neutrophils % 80 % Lymphocytes % 11 % Monocytes % 8 % Eosinophils % 0 % Basophils % 0 % Neutrophils # 5.4 (1.3-7.7) k/uL Lymphocytes # 0.7 L (1.0-4.8) k/uL Monocytes # 0.5 (0-1.0) k/uL Eosinophils # 0.0 (0-0.7) k/uL Basophils # 0.0 (0-0.2) k/uL Sodium 139 (137-145) mmol/L Potassium 4.5 (3.5-5.1) mmol/L Chloride 106 (98-107) mmol/L Carbon Dioxide 22 (22-30) mmol/L Anion Gap 11 mmol/L BUN 22 H (9-20) mg/dL Creatinine 0.84 (0.66-1.25) mg/dL Est GFR (CKD-EPI)AfAm >90 (>60 ml/min/1.73 sqM) Est GFR (CKD-EPI)NonAf >90 (>60 ml/min/1.73 sqM) Glucose 146 H (74-99) mg/dL Calcium 10.3 H (8.4-10.2) mg/dL Magnesium 2.2 (1.6-2.3) mg/dL Total Bilirubin 1.4 H (0.2-1.3) mg/dL AST 121 H (17-59) U/L ALT 152 H (4-49) U/L Alkaline Phosphatase 94 (38-126) U/L Total Protein 8.2 (6.3-8.2) g/dL Albumin 5.1 H (3.5-5.0) g/dL Disposition Clinical Impression: Generalized seizure Disposition: HOME SELF-CARE Instructions (If sedation given, give patient instructions): Seizure/Epilepsy Discharge Instructions & Follow-Up Is patient prescribed a controlled substance at d/c from ED?: No Referrals: Mir Brantley MD [Primary Care Provider] - 1-2 days Time of Disposition: 13:20
[2023-10-31] MEDS: ORPHENADRINE 30 MG/ML 2 ML VIAL IVP STA (13:29)
[2023-10-31 14:13] VITALS: BP 130/60; PULSE 86
== END 2023-10-31 13:39 | disposition home or self-care (01) ==
LOC: EC 11:24
DX: G40.409 Other generalized epilepsy and epileptic syndromes, not intractable, without status epilepticus (principal); F17.200 Nicotine dependence, unspecified, uncomplicated; Z88.2 Allergy status to sulfonamides
CPT/HCPCS: 36415; 93005; 80053; 83735; 85025; 99284; 96374; 96375; 96361; J2360; J1885